=== PATIENT | female | born 1985 | race Caucasian/White ===

== ENCOUNTER 2017-06-10 13:44 | Emergency (ER) | payer SELFPAY ==
[~2017-06-10] VITALS: Ht 162.6 cm; Wt 62.1 kg
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
--- NOTE | 2017-06-10 18:24 | NUR ---
PT TO CT SCAN
[2017-06-10 20:03] VITALS: BP 127/75
--- NOTE | 2017-06-10 20:03 | NUR ---
Patient discharged to home in stable condition. Written and verbal after care instructions given. Patient verbalizes understanding of instruction.
== END 2017-06-10 20:05 | disposition home or self-care (01) ==
LOC: ER 13:45
DX: S20.219A Contusion of unspecified front wall of thorax, initial encounter (principal); M25.562 Pain in left knee; V29.40XA Motorcycle driver injured in collision with unspecified motor vehicles in traffic accident, initial encounter; Y93.89 Activity, other specified; Y92.89 Other specified places as the place of occurrence of the external cause; Y99.8 Other external cause status
CPT/HCPCS: 29505; 36415; 73564; 73700; 84703 ×2; 99285; A4606; Z7610